=== PATIENT | female | born 1965 ===

== ENCOUNTER 2021-11-30 15:41 | Inpatient (IN) | payer MEDICARE ==
[~2021-11-30] VITALS: Ht 157.5 cm; Wt 53.5 kg
[2021-11-30 16:54] LABS: BASOPHILS PERCENT AUTO 0 % (0-2); EOSINOPHILS PERCENT AUTO 0 % (0-6); Hematocrit 42.9 % (33.0-51.0); Hemoglobin 14.8 g/dL (11.5-16.0); IMMATURE GRAN ABSOLUTE AUTO 0.03 K/mm3 (0.00-0.10); IMMATURE GRAN PERCENT AUTO 0 % (0-1); LYMPHOCYTES ABSOLUTE AUTO 0.44 K/mm3 (0.84-5.20); LYMPHOCYTES PERCENT AUTO 7 % (21-46); MONOCYTES ABSOLUTE AUTO 0.44 K/mm3 (0.16-1.47); MONOCYTES PERCENT AUTO 7 % (4-13); Mean Corpuscular HGB 32.2 pg (26.0-34.0); Mean Corpuscular HGB Conc 34.5 g/dL (31.5-36.5); Mean Corpuscular Volume 94 fL (80-100); Mean Platelet Volume 10.1 fL (9.1-12.4); NEUTROPHILS ABSOLUTE AUTO 5.77 K/mm3 (1.96-9.15); NEUTROPHILS PERCENT AUTO 86 % (41-73); Platelet Count 150 K/mm3 (150-400); RDW Coefficient Variation 13.7 % (11.7-14.2); RDW Standard Deviation 46.4 fL (35.1-46.3); Red Blood Cell Count 4.59 M/mm3 (3.80-5.20); White Blood Cell Count 6.68 K/mm3 (4.00-11.30)
[2021-11-30 17:19] LABS: CPK Creatine Kinase 487 U/L (26-193); Ethanol (Alcohol), Blood, Med <3 mg/dL
[2021-11-30 17:26] LABS: Alanine Aminotransfer (ALT/SGP 72 U/L (12-78); Albumin, Blood 3.7 g/dL (3.4-5.0); Alk Phos 119 U/L (50-136); Anion Gap 8 mmol/L (6-16); Aspartate Aminotrans (AST/SGOT 82 U/L (12-37); Bilirubin, Total 0.6 mg/dL (0.1-1.0); Blood Urea Nitrogen 10 mg/dL (8-24); Bun/Creatinine Ratio 22.3 (12.0-20.0); CO2, Blood 26 mmol/L (21-32); Calcium, Blood 9.3 mg/dL (8.5-10.1); Chloride, Blood 105 mmol/L (98-108); Creatinine, Blood 0.45 mg/dL (0.40-1.00); Globulin, Blood 3.6 g/dL (2.2-4.0); Glomerular Filtration Rate 75 (60-); Glucose, Blood 32 mg/dL (70-99); Potassium, Blood 2.7 mmol/L (3.5-5.5); Sodium, Blood 139 mmol/L (136-145); Total Protein, Blood 7.3 g/dL (6.4-8.2)
[2021-11-30 17:39] LABS: U Amphetamine Screen Not Detected; U Barbituate Screen Not Detected; U Benzodiazapine Screen Not Detected; U Buprenorphine Screen Not Detected; U Cannabinoids Screen DETECTED; U Cocaine Screen Not Detected; U Methadone Screen Not Detected; U Methamphetamine Screen Not Detected; U Opiates Screen Not Detected; U Oxycodone Screen Not Detected; U Phencyclidine Screen Not Detected; U Propoxyphene Screen Not Detected
[2021-11-30 17:43] LABS: Salicylate <1.7 mg/dL (2.8-20.0)
[2021-11-30 17:44] LABS: Creatine Kinase MB 14.9 ng/mL (0.0-3.6); Creatine Kinase MB Index 3.1 (0.0-4.0)
[2021-11-30 17:46] LABS: Acetaminophen, Random <2.0 ug/mL (10.0-30.0)
[2021-11-30 19:04] LABS: Source, Urine Fem Cath
[2021-11-30 19:08] LABS: Appearance, Urine Cloudy (Clear); Bilirubin, Urine Neg (Neg); Blood, Urine 2+ (Neg); Color, Urine Yellow (P-Yellow); Glucose Qualitative, Urine 3+ (Neg); Ketones, Urine Neg (Neg); Leukocyte Esterase, Urine 1+ (Neg); Nitrite, Urine Neg (Neg); Protein, Urine 3+ (Neg); Specific Gravity, Urine 1.015 (1.003-1.022); Urobilinogen, Urine NORM (Normal)
[2021-11-30 19:18] LABS: Bacteria Many /hpf; Squamous Epithelial Cells Rare /hpf (Few)
[2021-11-30 19:19] LABS: Amorphous Light (0-Heavy); Calcium Oxalate Crystals Few /hpf; Mucus Light (0-Heavy)
[2021-11-30] MEDS ORDERED: METF500 PO (22:04)
[2021-11-30] MEDS ORDERED: CLON1 PO (22:08)
--- NOTE | 2021-12-01 01:31 | NUR ---
Assumed care of pt at 1900. A/O to self only, needs constant reorientation. Pt says her name is Deann, or "James" for short. Last name is unclear as different answers given. Patient states "1965". Slightly febrile on admission at 99.7, but decreased to WNL shortly after. VSS. Patient appears to have bitten the inside R side of her lip and her tongue. Both without bleeding at this time, but old blood cleaned off face. Patient was on D51/2NS on admission at 100ml/hr but patients CBG kept dropping, to as low as 13. D50 amp given which brings her up but not for long and starts dropping again. Doctor contacted and changed to D10 1/2 NS at 150ml/hr. Had to give another amp of D50 despite being on the D10 1/2NS. This RN is doing Q15 CBG checks. SR-ST on tele 90-110.
[2021-12-01 04:07] LABS: BASOPHILS ABSOLUTE AUTO 0.01 K/mm3 (0.00-0.23); BASOPHILS PERCENT AUTO 0 % (0-2); EOSINOPHILS PERCENT AUTO 0 % (0-6); Hematocrit 37.6 % (33.0-51.0); Hemoglobin 12.9 g/dL (11.5-16.0); IMMATURE GRAN ABSOLUTE AUTO 0.01 K/mm3 (0.00-0.10); IMMATURE GRAN PERCENT AUTO 0 % (0-1); LYMPHOCYTES ABSOLUTE AUTO 0.81 K/mm3 (0.84-5.20); LYMPHOCYTES PERCENT AUTO 13 % (21-46); MONOCYTES ABSOLUTE AUTO 0.68 K/mm3 (0.16-1.47); MONOCYTES PERCENT AUTO 11 % (4-13); Mean Corpuscular HGB 32.1 pg (26.0-34.0); Mean Corpuscular HGB Conc 34.3 g/dL (31.5-36.5); Mean Corpuscular Volume 94 fL (80-100); Mean Platelet Volume 9.7 fL (9.1-12.4); NEUTROPHILS ABSOLUTE AUTO 4.72 K/mm3 (1.96-9.15); NEUTROPHILS PERCENT AUTO 76 % (41-73); Platelet Count 135 K/mm3 (150-400); RDW Coefficient Variation 13.8 % (11.7-14.2); Red Blood Cell Count 4.02 M/mm3 (3.80-5.20); White Blood Cell Count 6.23 K/mm3 (4.00-11.30)
[2021-12-01 04:26] LABS: Bun/Creatinine Ratio 10.5 (12.0-20.0); Calcium, Blood 7.4 mg/dL (8.5-10.1); Creatinine, Blood 0.47 mg/dL (0.40-1.00); Potassium, Blood 3.4 mmol/L (3.5-5.5)
--- NOTE | 2021-12-01 08:08 | NUR ---
BRISEYDA PLACED FOR ACCURATE I&Os PT ON CONTINUOUS D10 INFUSION AT 200ML/HR TELEPHONE ORDER PLACED BY THIS RN THAT WAS OBTAINED FROM DR EVERETT THIS AM. PT REQUIRES Q30 MINUTE BLOOD SUGARS AT THIS TIME BLOOD SUGARS WERE FLUCTUATING WILDLY T/O THE NIGHT. UPON ASSUMING PT CARE PT REQUESTING DEIRDRE, WAS PROVIDED WITH CLEAR ENSURE SHE REPORTS LACTOSE INTOLERANCE, WITH THE ADDITION OF ENSURE PT'S BLOOD SUGARS HAVE REMAINED AT 82. PT IS NOW SITTING UP IN BED EATING BREAKFAST TRAY. LS DIM T/O ON RIGHT SIDE, DIM TO CLEAR ON LEFT SIDE. DISTANT HEAR SOUNDS. PT BECOMING MORE ALERT, SHE IS ABLE TO REMEMBER DETAILS FROM HER STAY AT [facility] AND HER STAY HERE, HER RECOLLECTION IS SPOTTY.
--- NOTE | 2021-12-01 09:05 | NUR ---
ASSUMPTION OF CARE GERMAN FOWLER AND RAMA FOWLER ASSUMED CARE OF PATIENT AT 0700. BEDSIDE REPORT TAKEN FROM NANE MARIE FOWLER. PATIENT IS ALERT AND ORIENTED TO SELF AND DATE. UNSURE OF LOCATION AND SITUATION BUT DOES KNOW WHERE SHE LIVES AND THAT SHE WAS AT [facility]. PATIENT DENIES PAIN EXCEPT FOR BLADDER SPASMS DUE TO RECENT RAIN CATHETER PLACEMENT THIS AM FOR STRICT INPUT/OUTPUT MONITORING. PATIENT IS CALM AND COOPERATIVE WITH CARE BUT IS A POOR HISTORIAN FOR HEALTH HISTORY. PATIENT STATES SHE ONLY SMOKES MARIJUANA AND DOES NOT DRINK DAILY OR USE OTHER LEGAL/ILLEGAL DRUGS. CURRENT BLOOD SUGARS OVER THE PAST HOUR HAVE BEEN 156 AND 146. PATIENT IS CURRENTLY ON HER SECOND PROTEIN DRINK THIS AM. PATIENT ATE SOME OF HER EGGS ON HER BREAKFAST TRAY BUT STATED THAT IT HURT TO EAT DUE TO HER BITING HER TONGUE. IT IS SUSPECTED THAT THE PATIENT HAD A SEIZURE AT SOME POINT BEFORE COMING TO THE ED BECAUSE OF HER LOW BLOOD SUGAR AT TIME OF BEING FOUND DOWN AND THE LANDA ON HER TONGUE THAT INDICATE SHE BIT IT. PATIENT IS CURRENTLY SITTING UP IN BED DRINKING HER PROTEIN SHAKE. BED IN LOWEST POSITION AND CALL LIGHT WITHIN REACH. ALL VITALS STABLE. BED ALARM ON.
--- NOTE | 2021-12-01 09:53 | NUR ---
V/O OBTAINED FROM DR EVERETT TO TITRATE D10 DRIP TO KEEP BLOOD SUGARS ABOVE 100. D10 TITRATED TO 150ML/HR BLOOD SUGAR 161. PT ATE SMALL AMOUNT OF BREAKFAST AND WAS ABLE TO DRINK 1.5 CARTONS OF ENSURE. PT DOES REPORT ABD DISCOMFORT WITH EATING NOW WHEN DR EVERETT ROUNDED. PT REMAINS FORGETFUL BUT IS MORE ALERT, AND AWAKE. RAIN CONTINUES TO DRAIN WELL TO GRAVITY
[2021-12-01 10:15] LABS: Source, Urine Foley catheter
[2021-12-01 11:07] LABS: Appearance, Urine Clear (Clear); Bilirubin, Urine Neg (Neg); Color, Urine Yellow (P-Yellow); Ketones, Urine Neg (Neg); Nitrite, Urine Neg (Neg); Protein, Urine Neg (Neg); Urobilinogen, Urine NORM (Normal)
[2021-12-01 11:21] LABS: Blood, Urine Neg (Neg)
[2021-12-01 11:25] LABS: Glucose Qualitative, Urine 2+ (Neg); Leukocyte Esterase, Urine 1+ (Neg); Red Blood Cells, Urine 0-2 /hpf (0-2); pH, Urine 6.5 (5.0-8.0)
[2021-12-01 11:26] LABS: Bacteria Many /hpf; Squamous Epithelial Cells Rare /hpf (Few)
[2021-12-01 11:28] LABS: C-REACTIVE PROTEIN, EXT RANGE 1.77 mg/dL (0.000-0.300)
--- NOTE | 2021-12-01 16:37 | NUR ---
SHIFT SUMMARY PATIENT CONTINUES TO BE CONFUSED ABOUT THE SITUATION AND HER HEALTH HISTORY. PATIENT APPEARS TO BE ALERT AND ORIENTED TO HERSELF AND THE DATE ONLY. BP CONTINUES TO BE STABLE. BLOOD GLUCOSE HAS MAINTAINED IN THE LOW 100S ON A D-10 GTT AT 200MLS/HR. Q1HR CHECKS WITH GLUCOMETER. RAIN CATHETER PLACED DUE TO THE NEED FOR STRICT INPUT AND OUTPUT. PATIENT TOLERATING WELL AND CATHETER IS DRAINING CLEAR LIGHT YELLOW URINE TO GRAVITY; URINE SAMPLE SENT PER PROTOCOL. PATIENT COMPLAINED OF ABDOMINAL PAIN WITH NOTED FLATUS FREQUENTLY. PATIENT HAD SOFT FORMED STOOL EARLIER IN THE SHIFT. PATIENT GOT A CT SCAN OF ABDOMEN EARLIER IN THE SHIFT WHICH RULED OUT BOWEL OBSTRUCTION. PATIENT BRIEFLY COMPLAINED OF KNEE PAIN AND STATED THAT SHE HAS A HX OF ARTHRITIS BUT DOES NOT WANT TYELENOL AT THIS TIME. ALL VITALS STABLE. WILL CONTINUE TO MONITOR SHIFT CHANGE AT 1900. BED IN LOWEST POSITION AND CALL LIGHT IN REACH.
--- NOTE | 2021-12-01 23:03 | NUR ---
pt update PT STARTED SHIFT CB. CONTINUES TO DECREASE BLOOD GLUCOSE DESPITE D10 INFUSING PER EMAR. 2200 CB. CALL PLACED TO MD DRAKE TO ASK ABOUT CHECKING LABS SUCH ADRENAL AND PITUITARY HORMONE W/ AM LABS. MD DRAKE TO PUT LAB ORDERS IN.
--- NOTE | 2021-12-01 23:42 | NUR ---
PT UPDATE PT C/O OF 'STIFFNESS' ALL OVER AND NUMBNESS/TINGLING IN TOP OF FEET/TOES. DECREASED MOVEMENT WITH PUSH AND PULL FEET ASSESSMENT. CALL PLACED TO MD DRAKE. MD DRAKE W/ ORDERS FOR OT GABAPENTIN, SEE EMAR. MD DRAKE ALSO W/ ORDERS TO DRAW HORMONE LABS ONLY WHEN PT HYPOGLYCEMIC. MD DRAKE TO PUT IN NURSE NOTIFY.
[2021-12-02 05:48] LABS: BASOPHILS ABSOLUTE AUTO 0.02 K/mm3 (0.00-0.23); BASOPHILS PERCENT AUTO 1 % (0-2); EOSINOPHILS ABSOLUTE AUTO 0.05 K/mm3 (0.00-0.68); EOSINOPHILS PERCENT AUTO 1 % (0-6); Hematocrit 37.6 % (33.0-51.0); Hemoglobin 12.8 g/dL (11.5-16.0); IMMATURE GRAN ABSOLUTE AUTO 0.02 K/mm3 (0.00-0.10); IMMATURE GRAN PERCENT AUTO 1 % (0-1); LYMPHOCYTES ABSOLUTE AUTO 1.38 K/mm3 (0.84-5.20); LYMPHOCYTES PERCENT AUTO 32 % (21-46); MONOCYTES ABSOLUTE AUTO 0.61 K/mm3 (0.16-1.47); MONOCYTES PERCENT AUTO 14 % (4-13); Mean Corpuscular HGB 32.7 pg (26.0-34.0); Mean Corpuscular Volume 96 fL (80-100); Mean Platelet Volume 9.7 fL (9.1-12.4); NEUTROPHILS ABSOLUTE AUTO 2.18 K/mm3 (1.96-9.15); NEUTROPHILS PERCENT AUTO 51 % (41-73); Platelet Count 119 K/mm3 (150-400); RDW Coefficient Variation 14.3 % (11.7-14.2); RDW Standard Deviation 50.5 fL (35.1-46.3); Red Blood Cell Count 3.91 M/mm3 (3.80-5.20); White Blood Cell Count 4.26 K/mm3 (4.00-11.30)
[2021-12-02 06:02] LABS: Albumin, Blood 2.6 g/dL (3.4-5.0); Albumin/Globulin Ratio 0.8 (0.8-1.8); Bilirubin, Total 0.4 mg/dL (0.1-1.0); Bun/Creatinine Ratio 7.5 (12.0-20.0); Creatinine, Blood 0.53 mg/dL (0.40-1.00); Globulin, Blood 3.1 g/dL (2.2-4.0); Potassium, Blood 3.3 mmol/L (3.5-5.5); Thyroid Stimulating Hormone 2.82 uIU/mL (0.360-4.800); Total Protein, Blood 5.7 g/dL (6.4-8.2)
--- NOTE | 2021-12-02 06:30 | NUR ---
shift summary pt alert, oriented to self. poor historian. vss. pt cbg q1h, stayed >90 w/ d10 infusing at 200 mls/hr per emar. prince catheter draining clear yellow urine to gravity. no bm this shift but did pass alot of gas. pt states her abd bloat feels much better after passing gas. pt c/o of numbness/tingling in feet during shift, improved t/o shift. slept 2nd half of shift. asking when she can go home. call light in reach.
--- NOTE | 2021-12-02 18:27 | NUR ---
SHIFT SUMMARY PT ORIENTED TO SELF AND PLACE, ABLE TO RECALL THE SITUATION THAT BROUGHT HER INTO THE HOSPITAL ALTHOUGH DOES HAVE INTERMITTENT EPISODES OF CONFUSION. VSS; SR W/HR IN 80'S-90'S, SBP 150'S -160'S, OP2 >94% ON RA. PROVIDER NOTIFIED OF ELEVATED BP, NO NEW ORDERS; REQUESTS THAT IF SBP CONTINUES TO RISE NOTIFY PROVIDER. PROVIDER ALSO NOTIFIED OF PT REPORTS OF NUMBNESS IN TOES AND HANDS, ALONG WITH INCREASED PAIN. PT STATES "HER FEET DO NOT FEEL REAL". PROVIDER DID NOT HAVE ANY NEW ORDERS FOR THIS. PT WAS UP TO DANGLE AT BEDSIDE, PT STRUGGLED TO SIT UP BUT WAS ABLE TO REMAIN UPRIGHT FOR ABOUT 10 MINUTES. PT DID NOT HAVE A BM THROUGHOUT SHIFT BUT DID PASS FLATUS. PT DECLINED BEDBATH, ORAL CARE OR BRUSHING HAIR, STATES "MAYBE TOMORROW" SHE IS NOT FEELING WELL TODAY. PT COMPLAINS OF PAIN IN NECK AND SHOULDERS, MEDICATED PER EMAR. D10 DISCONTINUED, NEW ORDERS FOR D5 AT 125 ML/HR WITH CONTINUED CBG Q1. IF PT CBG REMAIN STABLE AND SUSTAIN, POSSIBLE TITRATION AND CBG Q4. RN TO CALL PROVIDER TOMORROW
--- NOTE | 2021-12-03 06:28 | NUR ---
shift summary Pt alert to self, place. Intermittent confusion. vss. some htn, MD Pena notified, continue to monitor d/t pt shaking possibly interfering w/ accuracy. prince catheter draining clear yellow urine. no bm this shift but a lot of gas. c/o of back pain, medicated per emar x1. repositioned frequently. c/o of muscle stiffness all over, hands and feet sensitive to touch. PG infusing d5 at 200 mls/hr, see previous note. q1h cbg done per orders. pt slept off and on during noc. Linen change done this shift. call light in reach.
[2021-12-03 08:07] LABS: C-PEPTIDE, SERUM 1.1 ng/mL (1.1-4.4)
[2021-12-03 08:59] LABS: BASOPHILS ABSOLUTE AUTO 0.03 K/mm3 (0.00-0.23); BASOPHILS PERCENT AUTO 1 % (0-2); EOSINOPHILS ABSOLUTE AUTO 0.08 K/mm3 (0.00-0.68); EOSINOPHILS PERCENT AUTO 2 % (0-6); Hematocrit 41.1 % (33.0-51.0); Hemoglobin 13.8 g/dL (11.5-16.0); IMMATURE GRAN ABSOLUTE AUTO 0.02 K/mm3 (0.00-0.10); IMMATURE GRAN PERCENT AUTO 0 % (0-1); LYMPHOCYTES ABSOLUTE AUTO 1.29 K/mm3 (0.84-5.20); LYMPHOCYTES PERCENT AUTO 24 % (21-46); MONOCYTES ABSOLUTE AUTO 0.65 K/mm3 (0.16-1.47); MONOCYTES PERCENT AUTO 12 % (4-13); Mean Corpuscular HGB 31.9 pg (26.0-34.0); Mean Corpuscular HGB Conc 33.6 g/dL (31.5-36.5); Mean Corpuscular Volume 95 fL (80-100); Mean Platelet Volume 9.4 fL (9.1-12.4); NEUTROPHILS PERCENT AUTO 61 % (41-73); Platelet Count 148 K/mm3 (150-400); RDW Coefficient Variation 13.6 % (11.7-14.2); RDW Standard Deviation 47.6 fL (35.1-46.3); Red Blood Cell Count 4.33 M/mm3 (3.80-5.20); White Blood Cell Count 5.37 K/mm3 (4.00-11.30)
[2021-12-03 09:18] LABS: Albumin, Blood 2.9 g/dL (3.4-5.0); Albumin/Globulin Ratio 0.8 (0.8-1.8); Bilirubin, Total 0.5 mg/dL (0.1-1.0); Bun/Creatinine Ratio 9.8 (12.0-20.0); C-REACTIVE PROTEIN, EXT RANGE 1.06 mg/dL (0.000-0.300); Calcium, Blood 8.2 mg/dL (8.5-10.1); Creatinine, Blood 0.51 mg/dL (0.40-1.00); Globulin, Blood 3.6 g/dL (2.2-4.0); Potassium, Blood 3.7 mmol/L (3.5-5.5); Total Protein, Blood 6.5 g/dL (6.4-8.2)
--- NOTE | 2021-12-03 10:02 | NUR ---
CARE ASSUMED OF PT AT 0700. PT SOFT SPOKEN BUT AWAKE, ALERT, AND ORIENTED. PT C/O 9/10 PAIN TO ALL OF HER JOINTS. C/O 9/10 NECK AND BACK PAIN. DENIES HEADACHE. DENIES NAUSEA. BS WNL ON D5 AT 200CC/HR. PT HYPERTENSIVE. PT SHAKING FROM PAIN. DR ARAUJO CALLED AND UPDATED. LABS AND CT SCAN ORDERED. FENTANYL 25MCG GIVEN WITH GOOD EFFECT. PT ALSO STATES MOUTH HURTS. NO ORAL SORES SEEN BUT BOTTOM LIP DOES APPEAR TO BE SWOLLEN. CT OF HEAD AND SPINE COMPLETED.
--- NOTE | 2021-12-03 12:16 | NUR ---
DR EVERETT IN TO SEE PT, FULL UPDATE GIVEN. FENTANYL CHANGED TO Q2HRS PRN PAIN. PT GIVEN TYLENOL FOR JOINT PAIN. ADDITIONAL LABS ORDERED. CBG Q2 HRS NOW. D5W DECREASED TO 150CC/HR.
--- NOTE | 2021-12-03 16:47 | NUR ---
PT MUCH MORE AWAKE. CALM. PAIN UNDER BETTER CONTROL. DURING BED BATH TWO SCABS ON EACH SIDE OF COCCYX NOTED. PICTURES TAKEN, MEPILEX PLACED. BP IMPROVING. BLOOD SUGAR IMPROVING WELL.
--- NOTE | 2021-12-03 19:33 | NUR ---
NURSING PCU NOC SHIFT: Assumed care of pt at approx 1900. A/O, general weakness in all ext's, reduced fine motor skills of hands d/t joint inflammation. C/O 8/10 pain in joints/ext's. Skin has scattered bruising t/o, reported scabbed over breakdown on coccyx w/mepilex in place, increased redness/heat to R foot. Tele in place, NSR w/HR 80's, no c/o CP/pressure, HTN w/BP 147/103, no general edema noted. L/S cta t/o, O2 sat 100% on RA, denies dyspnea, no noted cough. Abd firm, mildly distendend, BT hyperactive, experiencing flatus. Temp FC w/stat lock in place and draining clear/yellow urine w/o difficulty. 24g PIV in L hand, s/l. PG to RUE w/D5 infusing at 150cc/hr as per d/o. No s/s of acute distress at this time. Will provide pt with fentanyl as ordered for pain management. Pt able to participate in ADL's though requires some assistance with repositioning. Denies any additional needs other than pain control, cont to monitor for changes.
--- NOTE | 2021-12-03 19:33 | NUR ---
NURSING PCU NOC SHIFT: Assumed care of pt at approx 1900. A/O, general weakness in all ext's, reduced fine motor skills of hands d/t joint inflammation. C/O 8/10 pain in joints/ext's. Skin has scattered bruising t/o, reported scabbed over breakdown on coccyx w/mepilex in place, increased redness/heat to R foot. Tele in place, NSR w/HR 80's, no c/o CP/pressure, HTN w/BP 147/103, no general edema noted. L/S cta t/o, O2 sat 100% on RA, denies dyspnea, no noted cough. Abd firm, mildly distendend, BT hyperactive, experiencing flatus. Temp FC w/stat lock in place and draining clear/yellow urine w/o difficulty. 22g PIV in L hand, s/l. PG to RUE w/D5 infusing at 150cc/hr as per d/o. No s/s of acute distress at this time. Will provide pt with fentanyl as ordered for pain management. Pt able to participate in ADL's though requires some assistance with repositioning. Denies any additional needs other than pain control, cont to monitor for changes.
--- NOTE | 2021-12-04 05:02 | NUR ---
NURSING PCU NOC SHIFT SUMMARY: No significant changes noted t/o the shift. Pt has rested fairly comfortably after administration of 25mcg fentanyl x1 and bedtime dose of klonopin. Able to make needs known and use call light. Tolerated repositioning for comfort though ext's/joints remain painful with movement. Decreased D5 to 100mls/hr, CBG remains stable. Pt tolerating PO intake though requires some assitance d/t decrease fine motor skills r/t joint swelling/pain. Pt denies any current needs at this time. Call light remains in reach. Cont to monitor until rpt is given to day RN.
[2021-12-04 05:08] LABS: HEP B CORE AB, TOT Negative (Negative)
--- NOTE | 2021-12-04 07:14 | NUR ---
ASSUMPTION OF CARE: PATIENT SLEEPING WITH NO SIGNS OF DISTRESS, D5 INFUSING AT 100, LAST CBG PREFORMED, WILL JOE AT 0800, NIGHT RN ENDORSED PATIENT TO BE MORE ALERT AND ORIENTED WITH NO RECOLLECTION OF THE EVENT WHERE SHE WAS FOUND DOWN, NIGHT RN ENDORSED DRAMATIC IMPROVMENT TO JOINT INFLAMATION/SWELLING, PATIENT SAID TO BE HAVE JOINT ACHES AND WAS CONFIRMED WITH SLIGHT PRESSURE TO PEDAL PULSES, SEIZURE PRECAUTIONS IN PLACE, NO ACUTE CONCERNS FROM NIGHT RN WILL CONTINUE TO MONITOR AT THIS TIME.
[2021-12-04 17:13] LABS: Glucose, CSF 81 mg/dL (40-70)
[2021-12-04 17:33] LABS: WBC Count, CSF 0 /mm3 (0-5)
[2021-12-04 17:34] LABS: Appearance, CSF Clear (Clear); Color, CSF No Color (No Color)
[2021-12-04 17:36] LABS: RBC Count, CSF 0 /mm3 (0-0)
[2021-12-04 18:12] LABS: Escherichia Coli K1 Not Detected (NOT DETECT); Haemophilus Influenza Not Detected (NOT DETECT); Listeria Monocytogenes Not Detected (NOT DETECT); Neisseria Meningitidis Not Detected (NOT DETECT)
[2021-12-04 18:13] LABS: Cryptococcus Neoformans/Gattii Not Detected (NOT DETECT); Enterovirus Not Detected (NOT DETECT); Herpes Simplex Virus 1 Not Detected (NOT DETECT); Herpes Simplex Virus 2 Not Detected (NOT DETECT); Human Herpesvirus 6 Not Detected (NOT DETECT); Human Parechovirus Not Detected (NOT DETECT); Streptococcus Agalactiae Not Detected (NOT DETECT); Streptococcus Pneumoniae Not Detected (NOT DETECT); Varicella Zoster Virus Not Detected (NOT DETECT)
--- NOTE | 2021-12-04 18:17 | NUR ---
END OF SHIFT: PATIENT HAS HAD AN MRI, AND LUMBAR PUNCTURE, AND STILL INFUSING 100 OF D5 NEW BAG AT BEDSIDE. PATIETN HAS BEEN A &O X3-4, BUT IS STILL CONFUSED, Q2 BLOOD SUGAR AND REPOSITIONS. SPACED OUT DUE TO CARE, AND STARTING AND STOPPING OF D5. PATIENT HAS BEEN CLEAR BILATERALLY ON BREATHSOUNDS AT BEGGINING OF SHIFT. DENIES CHEST PAIN PRESSURE, OR SOB.PATIENT HAS BEEN PLEASANT AND VERY COOPERATIVE WITH CARE MEDICATED WITH EMAR PAIN MEDS, ONLY 1 BOUT OF NAUSEA MEDICATED PER EMAR. NO SECOND DOSE NEEDED. PATIENT STILL COMPLAINING OF JOINT PAIN, AND NUMBNESS OF THE FEET, WHICH PROVIDER AWARE. WILL CONTINUE TO MONITOR. LUMBAR PUNCTURE WAS BY DR. ROBERSON AND TOLEARTED GREATLY WITH 1 MG IV ATIVAN FOR ANX. NO CONCERNS ABOUT STERILE TECHNIQUE, AND WAS EXECUTED EXCELLENTLY. PATIENT IS ABLE TO COMPREHEND COMPLEX DECISIIONS STILL AT THIS TIME, INCREASING FATIGUE AND GENERALIZED WEAKNESS. POOR APPETITE, WILL CONTINUE TO MONITOR UNTIL SHIFT CHANGE.
--- NOTE | 2021-12-04 19:45 | NUR ---
ASSUMED CARE PT SITTING IN BED EATING DINNER. REPORTS LITTLE APPETITE. D5W INFUSING AT 100ML/HR. Q2 CBG CHECKS. LUNG SOUNDS CLEAR WITH DIM BASES. COUGH WITH THIN CLEAR SPUTUM. SR, VSS, HYPERTENSION NOTED. PT C/O PAIN 7/10 IN JOINTS AND NUMBNESS/TINGLING IN BLE. PT ALSO C/O NAUSEA. MEDICATED PER EMAR. BED ALARM IN PLACE.
--- NOTE | 2021-12-04 21:56 | NUR ---
CALL TO MD CALL PLACED TO DR MANCILLA REGARDING NUEROPATHY PAIN IN BLE. ORDER RECEIVED.
[2021-12-05 04:01] LABS: BASOPHILS ABSOLUTE AUTO 0.01 K/mm3 (0.00-0.23); BASOPHILS PERCENT AUTO 0 % (0-2); EOSINOPHILS ABSOLUTE AUTO 0.07 K/mm3 (0.00-0.68); EOSINOPHILS PERCENT AUTO 2 % (0-6); Hemoglobin 12.8 g/dL (11.5-16.0); IMMATURE GRAN ABSOLUTE AUTO 0.01 K/mm3 (0.00-0.10); IMMATURE GRAN PERCENT AUTO 0 % (0-1); LYMPHOCYTES ABSOLUTE AUTO 1.06 K/mm3 (0.84-5.20); LYMPHOCYTES PERCENT AUTO 28 % (21-46); MONOCYTES ABSOLUTE AUTO 0.66 K/mm3 (0.16-1.47); MONOCYTES PERCENT AUTO 18 % (4-13); Mean Corpuscular HGB 32.3 pg (26.0-34.0); Mean Corpuscular HGB Conc 33.7 g/dL (31.5-36.5); Mean Corpuscular Volume 96 fL (80-100); Mean Platelet Volume 9.5 fL (9.1-12.4); NEUTROPHILS ABSOLUTE AUTO 1.95 K/mm3 (1.96-9.15); NEUTROPHILS PERCENT AUTO 52 % (41-73); Platelet Count 152 K/mm3 (150-400); RDW Coefficient Variation 13.4 % (11.7-14.2); RDW Standard Deviation 47.8 fL (35.1-46.3); Red Blood Cell Count 3.96 M/mm3 (3.80-5.20); White Blood Cell Count 3.76 K/mm3 (4.00-11.30)
[2021-12-05 04:20] LABS: Albumin, Blood 2.8 g/dL (3.4-5.0); Albumin/Globulin Ratio 0.8 (0.8-1.8); Bilirubin, Total 0.5 mg/dL (0.1-1.0); Bun/Creatinine Ratio 14.8 (12.0-20.0); Calcium, Blood 8.3 mg/dL (8.5-10.1); Creatinine, Blood 0.68 mg/dL (0.40-1.00); Globulin, Blood 3.4 g/dL (2.2-4.0); Potassium, Blood 3.9 mmol/L (3.5-5.5); Total Protein, Blood 6.2 g/dL (6.4-8.2)
--- NOTE | 2021-12-05 06:21 | NUR ---
SHIFT SUMMARY NO ACUTE EVENTS OVERNIGHT. Q2 CBG 132-157. D5W INFUSING AT 100ML/HR. SR, VSS, HYPERTENSION NOTED. PT UP TO BSC W/ 2 ASSIST. MEDICATED X1 WITH FENTANYL, AND X1 WITH GABAPENTIN WITH GOOD RESULTS. WILL REPORT TO ONCOMING NURSE.
--- NOTE | 2021-12-05 08:33 | NUR ---
NURSING PCU DAYSHIFT: Assumed care of pt at approx 0700. A/O, pleasant, cooperative w/care. Speech is soft though responses appropriate. C/O 7-8/10 joint pain, treating w/positioning and meds as ordered. Able to reposition independently in bed though assistance is required w/ambulation. General weakness noted, decreased fine motor skills in hands r/t joint pain. Skin is fairly intact w/scattered bruising, healing abrasion to buttocks. Tele in place, NSR, no c/o CP/pressure, hypertensive this a.m., no significant edema noted. L/S fairly cta t/o w/dim bases, denies dyspnea, no noted cough, O2 sat upper 90's on RA. Abd SNT, BT hyperactive, c/o gas, voiding w/o difficulty. PG in RUE w/D5 infusing at 100cc/hr, 24g PIV to LH s/l. Pt OOB to BSC to void then recliner for breakfast. Tolerating fairly well though c/o pain. Will discuss w/hospitalist the possibility of switching from IV pain medication to PO for longer pain management. Linen change completed. No s/s of acute distress at this time. Call light in reach and pt is able to use w/o difficulty. Awaiting rounding from PMD, cont to monitor for any changes.
[2021-12-05 13:10] LABS: ANA DIRECT Negative (Negative); ANTI-DNA (DS) AB QN <1 IU/mL (0-9); RNP ANTIBODIES <0.2 AI (0.0-0.9); SJOGREN'S ANTI-SS-A <0.2 AI (0.0-0.9); SJOGREN'S ANTI-SS-B <0.2 AI (0.0-0.9); SMITH ANTIBODIES <0.2 AI (0.0-0.9)
--- NOTE | 2021-12-05 16:55 | NUR ---
NURSING PCU DAYSHIFT SUMMARY: No significant changes noted t/o the shift. Pt continues to c/o joint/ext discomfort, changed pain medication to PO for longer coverage, pt tolerating well. Continues to c/o excess gas, simethicone administered. OOB to BSC to void w/one staff assist, remains weak and painful with ambulation. Spent much of the a.m. in a recliner, xfer BTB after bath completed. D5 gtt discontinued at approx 1100, CBGs remain stable though pt needs encouragement with PO intake. Prefers nutritional shakes over solid food at this time. No s/s of acute distress. Call light in reach, pt able to use w/o difficulty. Cardiac and respiratory systems unchanged. Pt changed to medical status w/o tele, awaiting bed assignment. Cont to monitor until rpt is given to NOC RN.
--- NOTE | 2021-12-06 05:51 | NUR ---
PT IS ALERT AND ORIENTED COMMUNICATING APPROPRIATELY W STAFF THIS SHIFT. PT HAS REPORTED SEVERE PAIN IN HER JOINTS SPECIFICALLY IN HER HANDS AND FEET. THE PT HAS REPORTED HER PAIN "PINS AND NEEDLES" AT TIMES, PAIN APPEARING TO BE WELL CONTROLLED W ORAL PRN PAIN MEDICATION. BP WNL AND STABLE. O2 SATS >92% ON RM AIR. CBG WNL THIS SHIFT. WILL REPORT TO ONCOMING RN.
--- NOTE | 2021-12-06 17:50 | NUR ---
SHIFT SUMMARY PT A&Ox3, UNSURE OF EVENTS LEADING TO HOSPITALIZATION. SpO2> 92% RA, BP STABLE, PT NOT ON TELE. PT ABLE TO TRANSFER TO [facility] WITH SBA. THROUGHOUT SHIFT PT REPORTED PAIN IN ALL JOINTS RANGING WITH A SCORE RANGING FROM 5-9, MEDICATED PER EMAR AND PROVIDED REPOSITIONING. PT REPORTED PAINFUL GAS AND STATED THAT SHE HAD NOT HAD A BM SINCE 12/02, DISCUSSED WITH DR. EVERETT, BOWEL CARE ORDERS GIVEN. WILL CONTINUE TO MONITOR AND PROVIDE CARE UNTIL REPORT TO NOC.
[2021-12-07 04:34] LABS: Hematocrit 38.9 % (33.0-51.0); Hemoglobin 13.3 g/dL (11.5-16.0); Mean Corpuscular HGB Conc 34.2 g/dL (31.5-36.5); Mean Corpuscular Volume 94 fL (80-100); Mean Platelet Volume 9.3 fL (9.1-12.4); Platelet Count 192 K/mm3 (150-400); RDW Coefficient Variation 12.8 % (11.7-14.2); Red Blood Cell Count 4.15 M/mm3 (3.80-5.20); White Blood Cell Count 3.78 K/mm3 (4.00-11.30)
[2021-12-07 04:56] LABS: Albumin, Blood 3.1 g/dL (3.4-5.0); Albumin/Globulin Ratio 0.8 (0.8-1.8); Bilirubin, Total 0.7 mg/dL (0.1-1.0); Bun/Creatinine Ratio 48.6 (12.0-20.0); Calcium, Blood 8.8 mg/dL (8.5-10.1); Creatinine, Blood 0.47 mg/dL (0.40-1.00); Globulin, Blood 4.1 g/dL (2.2-4.0); Potassium, Blood 4.2 mmol/L (3.5-5.5); Total Protein, Blood 7.2 g/dL (6.4-8.2)
--- NOTE | 2021-12-07 05:36 | NUR ---
SECRETARY OF POLICE SUMMARY PT IS ALERT AND ORIENTED THIS SHIFT APPEARING MUCH LESS DROWSY THEN PREVIOUSNIGHT SHIFT. BS STABLE. O2 SATS >92% ON RM AIR. BP WNL AND STABLE. PT'S PAIN MUCH BETTER THIS SHIFT ONLY REQUIRING PAIN MEDICATION ONCE THIS SHIFT. WILL REPORT TO ONCOMING RN.
--- NOTE | 2021-12-07 17:12 | NUR ---
SHIFT SUMMARY PT A&Ox4, THOUGH IS STILL UNSURE OF EVENTS LEADING TO THIS HOSPITALIZATION. SpO2> 92% RA, BP STABLE, PT NOT ON TELE. WHILE DR. DIAZ WAS IN PT's ROOM, WE DISCUSSED HER JOINT/NERVE PAIN AND HER LACK OF BM SINCE 12/01, ORDERS FOR GABAPENTIN AND ADDITIONAL BOWEL CARE WERE GIVEN. PT STATES THAT THE GABAPENTIN HELPED WITH THE JOINT/NERVE PAIN. PT REFUSED THE SUPPOSITORY BUT TOOK THE MIRALAX, PT STILL WITH NO BM THIS SHIFT. PT UP TO BSC WITH A SBA. WILL CONTINUE TO MONITOR AND PROVIDE CARE UNTIL REPORT TO NOC.
--- NOTE | 2021-12-08 04:37 | NUR ---
SHIFT SUMMARY PATIENT ALERT AND ORIENTED X4, STILL SLOW TO RESPOND AND ANXIOUS AT TIMES, SLEPT MOST THE NIGHT, CALLED APPROPRIETLY TO USE THE BATHROOM, REPOSITIONED SELF IN BED. 02 SATS >95% ON RA. BP STABLE. NO ACUTE CHANGES, CALL LIGHT IN REACH.
[2021-12-08 04:39] LABS: Albumin, Blood 3.3 g/dL (3.4-5.0); Anion Gap 7 mmol/L (6-16); Blood Urea Nitrogen 25 mg/dL (8-24); Bun/Creatinine Ratio 37.6 (12.0-20.0); CO2, Blood 26 mmol/L (21-32); Calcium, Blood 9.1 mg/dL (8.5-10.1); Chloride, Blood 106 mmol/L (98-108); Creatinine, Blood 0.67 mg/dL (0.40-1.00); Glomerular Filtration Rate 103 (60-); Glucose, Blood 109 mg/dL (70-99); Phosphorus, Blood 3.6 mg/dL (2.5-4.9); Sodium, Blood 139 mmol/L (136-145)
--- NOTE | 2021-12-08 08:31 | NUR ---
Assisted from bedside commode to dangle on side of bed, finishing her breakfast. She appears painful, hesitant, and states she isn't that hungry this morning.
--- NOTE | 2021-12-08 17:27 | NUR ---
SHIFT SUMMARY PT A&Ox4, IS FORGETFUL AT TIMES BUT EASILY REORIENTED. SpO2> 92% RA, BP STABLE, PT NOT ON TELE. PT STATES HER PAIN WAS UNDER BETTER CONTROL TODAY. PT WAS ABLE TO HAVE A BM THIS SHIFT. PT AMBULATED IN ROOM WITH OT AND PHYSICAL THERAPY. NO OTHER EVENTS. WILL CONTINUE TO MONITOR AND PROVIDE CARE UNTIL REPORT WITH NOC
--- NOTE | 2021-12-09 05:50 | NUR ---
UNIT DIRECTOR SUMMARY PT IS ALERT AND ORIENTED COMMUNICATING APPROPRIATELY W STAFF THIS SHIFT. PT HAD C/O SEVERE "PINS AND NEEDLES" PAIN IN BILATERAL FEET THIS SHIFT, MEDICATED PER EMAR W MINIMAL RELIEF. O2 SATS >92% ON RM AIR. BP WNL AND STABLE. WILL REPORT TO ONCOMING RN.
--- NOTE | 2021-12-09 08:00 | NUR ---
PT PLEASANT COOP A/O X3, VERY QUIET. CONCRETE, SOME ANX. VERY FOCUSED ON FOOT PAIN & N/T. DR DID INCREASE NUERONTIN THIS AM. H/R REG, NO MURMUR NOTED. NO TELE. LUNGS CLEAR, RESP EASY, UNLABORED. RELAXED. BT X4 LAST BM NOT KNOWN BY PT. VOIDS 1 ASST TO BSC. NO EDEMA NOTED. BED IN LOW POSITIOIN, CALL LITE IN REACH CALLS APPROP
--- NOTE | 2021-12-09 12:33 | NUR ---
PT REQUEST MED FOR ANXIETY. CALLED DR DIAZ, MED INCREASED FOR NEURONTIN. KLONAZAPAM IS FOR BEDTIME USE. NO NEW ORDERS GIVEN
--- NOTE | 2021-12-09 17:19 | NUR ---
PT PLEASANT TODAY. HAS C/O RT SHOULDER JOINT PAIN AND FOOT PAIN. SOME PAIN AND SOME NERVE PAIN. DID MEDICATE WITH LARGER DOSE NEURONTIN THIS AM PER EMAR. DID MEDICATE FOR PAIN IN ADDITION. GAVE SIMETHICONE THIS AFT FOR GAS BUILDUP. EDUCATED TO DO BICYCLE MOVEMENT WITH LEGS WHILE IN BED TO ASSIST GAS RELEIF. PT STATES OVERALL PAIN IS A NEW SITUATION FOR HER. STATES UNKNOWN WHY. STATES FEELS MAY EVEN BE IN JOINTS. NO OTHER CONCERNS NOTED, BED IN LOW POSITION, CALL LITE IN REACH, CALLS APPROP
[2021-12-10 05:04] LABS: Hematocrit 40.4 % (33.0-51.0); Hemoglobin 13.5 g/dL (11.5-16.0); Mean Corpuscular HGB 31.8 pg (26.0-34.0); Mean Corpuscular HGB Conc 33.4 g/dL (31.5-36.5); Mean Corpuscular Volume 95 fL (80-100); Mean Platelet Volume 9.4 fL (9.1-12.4); Platelet Count 209 K/mm3 (150-400); RDW Coefficient Variation 12.7 % (11.7-14.2); RDW Standard Deviation 44.3 fL (35.1-46.3); Red Blood Cell Count 4.24 M/mm3 (3.80-5.20); White Blood Cell Count 4.01 K/mm3 (4.00-11.30)
[2021-12-10 05:40] LABS: Albumin, Blood 3.2 g/dL (3.4-5.0); Anion Gap 7 mmol/L (6-16); Blood Urea Nitrogen 17 mg/dL (8-24); Bun/Creatinine Ratio 26.9 (12.0-20.0); CO2, Blood 25 mmol/L (21-32); Calcium, Blood 9.3 mg/dL (8.5-10.1); Chloride, Blood 106 mmol/L (98-108); Creatinine, Blood 0.63 mg/dL (0.40-1.00); Glomerular Filtration Rate 104 (60-); Glucose, Blood 105 mg/dL (70-99); Phosphorus, Blood 4.2 mg/dL (2.5-4.9); Sodium, Blood 138 mmol/L (136-145)
--- NOTE | 2021-12-10 05:49 | NUR ---
LIFE CLAIMS EXAMINER SUMMARY THE PT IS ALERT AND ORIENTED COMMUNICATING APPRORPIATELY W STAFF THIS SHIFT. THE PT HAS C/O OF MUCH MORE SIGNIFICANT PAIN THIS SHIFT COMPRED TO THE PREVIOUS NIGHT W THE MAIN SOURCE OFR HER PAIN BEING IN HER R SHOULDER AND "GENERALIZED JOINT PAIN". PT'S O2 SATS >92% ON RM AIR. BP WNL AND STABLE. PT ABLE TO SLEEP MOST OF THE NIGHT AWAKENING TO REQUEST PAIN MEDICATION. WILL REPORT TO ONCOMING RN.
--- NOTE | 2021-12-10 17:14 | NUR ---
SHIFT SUMMARY PATIENT IS ALERT AND ORIENTED. PATIENT HAS HAD NO ACUTE EVENTS THIS SHIFT. VITAL SIGNS REVIEWED. PATIENT WAS A PCU TRANSFER THIS MORNING. PATIENT IS A 1 PERSON ASSIST. PATIENT HAS HAD SOFT BMS SINCE TRANSFER. PATIENT HAS NOT COMPLAINED OF SOB, NAUSEA, VOMITTING. PATIENT HAS HAD PAIN AND MEDICATED PER EMAR. BED IN LOCKED AND LOWEST POSITION. CALL LIGHT IN PLACE. WILL MONITOR UNTIL SHIFT CHANGE.
--- NOTE | 2021-12-11 07:14 | NUR ---
56 YEAR OLD FEMALE WITH CIRRHOSIS & ams WHO WAS FOUND DOWN AT 7 FEATHERS WITH BLOOD GLUCOSE OF 13 PER PT REPORT. PT REPORTS ONGOING ETOH USE DESPITE CIRRHOSIS REFUSED BOWEL CARE HAD 4 BMS THIS SHIFT.
--- NOTE | 2021-12-11 14:08 | NUR ---
SHIFT SUMMARY PT RESTING QUIETLY AT START OF SHIFT. WOKE EASILY FOR CARE WEAK AND DECONDITIONED WITH FLAT AFFECT. C/O GAS AFTER BREAKFAST, BUT ONLY EATING SM AMTS. REPORTED 4 BM'S SINCE YESTERDAY. BOWEL CARE HELD. PT IS CONTINENT OF BOWEL AND BLADDER, GETTING UP TO BSC WITH SBA NEEDED. PT UP TO SHOWER THIS AFTERNOON WITH ASSIST FROM [employer]. LINENS AND GOWN CHANGED. PER ROTARY DRIER, PT WAITING TO GO TO SNF WHEN BED AVAILABLE. DENIES FURTHER NEEDS AT THIS TIME. CALL LT IN REACH.
--- NOTE | 2021-12-12 17:45 | NUR ---
SHIFT SUMMARY PT A&OX 4 AND IN PLEASENT MOOD T/O SHIFT. TOLERATING PO INTAKE @ THIS TIME. NO FURTHER C/O LOOSE BM. CALL LIGHT W/IN REACH. PAIN MEDICATED PER EMAR. AWAITING PLACEMENT @ THIS TIME. GLUCOSE CHECKS W/IN NORMAL RANGE.
--- NOTE | 2021-12-13 00:15 | NUR ---
PATIENT COMPLAINED OF BURNING TO HER FEET EARLY IN SHIFT. MEDICATED WITH OXYCODONE AND TYLENOL. CURRENTLY SHE IS RESTING COMFORTABLY EYES CLOSED BREATHING EVEN AND UNLABORED. PATIENT IS AO X 3. PERSON PLACE AND EVENT BUT NOT TIME. VITAL SIGNS ARE WITHIN NORMAL LIMITS. BLOOD SUGAR IS 91 AND PATIENT ENCOURAGED TO EAT A SNACK. PATIENT IS VERY TEARY AND IS WONDERING WHY HER BLOOD SUGARS ARE SO UP AND DOWN. PATIENT IS ENCOURAGED TO SPEAK WITH MD IN THE AM. NOT TO BOARD IN ROOM TO ASSIST PAITENT IN REMEMBERING.
--- NOTE | 2021-12-13 17:41 | NUR ---
SHIFT SUMMARY PT IS A&OX4 AND COOPERATIVE OF CARE. PT HAS C/O PAIN IN RIGHT SHOULDER AND MEDICATED PER EMAR. PT WORKED WITH PHYSICAL AND OCCUPATIONAL THERAPY TODAY. PT HAS BEEN UP TO CHAIR SEVERAL TIMES TODAY AND IS ABLE TO AMBULATE TO BATHROOM WITH FWW AND 1 ASSIST. BED IN LOWEST POSITION AND CALL LIGHT IN REACH.
--- NOTE | 2021-12-14 06:14 | NUR ---
SHIFT SUMMARY SHE IS STILL COMPLAINING OF SHOULDER PAIN, MEDICATED PER EMAR. PT IS A/OX4, BUT FLAT AND WITHDRAWN. MAKES NEEDS KNOWN. BLOOD GLUCOSE STABLE, VITALS STABLE. PT SLEPT MOST OF THE NIGHT APPEARING COMFORTABLE. NO ACUTE CHANGES OVERNIGHT, ASSESSMENT UNCHANGED.
[2021-12-14 10:43] LABS: Influenza A, PCR NEGATIVE (NEGATIVE); Influenza B, PCR NEGATIVE (NEGATIVE); Resp Syncytial Virus, PCR NEGATIVE (NEGATIVE); SARS-Cov-2 (COVID-19) PCR, MMC NEGATIVE (NEGATIVE)
[2021-12-14] MEDS ORDERED: ACET325 PO (12:35)
[2021-12-14] MEDS ORDERED: DEX4 GLUCOSE33 G2 PO (12:35)
[2021-12-14] MEDS ORDERED: GABA300 PO (12:36)
[2021-12-14] MEDS ORDERED: MIRALAX17 GM PO (12:36)
[2021-12-14] MEDS ORDERED: OXYC5 PO (12:36)
[2021-12-14] MEDS ORDERED: DOCU100 PO (12:36)
[2021-12-14] MEDS ORDERED: SIME80CH PO (12:37)
[2021-12-14] MEDS ORDERED: SENN187 PO (12:37)
--- NOTE | 2021-12-14 14:27 | NUR ---
LATE ENTRY/DC TO SNF 1200: PT TO SNF VIA MEDICAL TRANSPORT WITH ALL PERSONAL BELONGINGS. POWER GLIDE DC'D WITH CATH TIP INTACT, NO REDNESS OR SWELLING NOTED. HARD SCRIPTS FOR OXYCODONE AND CLONIPINE SENT WITH PT IN SNF DC PKT. REPORT CALLED TO RECEIVING RN AT [facility]
== END 2021-12-14 11:55 | DRG 637 ==
LOC: ER 15:41 → PCU 15:42 → EDBD 15:42 → PCU 15:42 → MEDS 12-01 14:47 → PCU 12-01 23:20 → MEDS 12-10 09:39
PROVIDERS: Emergency Medicine; Family Medicine; Internal Medicine; ADMIT Family Medicine
DX: E11.649 Type 2 diabetes mellitus with hypoglycemia without coma (principal); G92.8 Other toxic encephalopathy; M62.82 Rhabdomyolysis; N39.0 Urinary tract infection, site not specified; E11.40 Type 2 diabetes mellitus with diabetic neuropathy, unspecified; Z20.822 Contact with and (suspected) exposure to COVID-19; I10 Essential (primary) hypertension; E87.6 Hypokalemia; K74.60 Unspecified cirrhosis of liver; F12.90 Cannabis use, unspecified, uncomplicated; K59.03 Drug induced constipation; T40.605A Adverse effect of unspecified narcotics, initial encounter; F41.9 Anxiety disorder, unspecified; B96.20 Unspecified Escherichia coli [E. coli] as the cause of diseases classified elsewhere; G47.00 Insomnia, unspecified; Z91.14 Patient's other noncompliance with medication regimen
CPT/HCPCS: 0241U; 36415; 51701; 51702; 51703; 62270; 70450; 70551; 71045; 72125; 74177; 80048; 80053; 80069; 81001; 82140; 82533; 82550; 82553; 82607; 82746; 82945; 82947; 83036; 83525; 83527; 83690; 84145; 84206; 84443; 84681; 85025; 85027; 85651; 86140; 86225; 86235; 86317; 86430; 86592; 86704; 87077; 87086; 87186; 87483; 89051; 93005; 93010; 96361; 96365-59; 96366; 96375-59; 96376-59; 97110; 97116; 97162; 97166; 97530; 97535; 99291-25; A9270; C1751; C9113; G0378; G0480; J0696; J1610; J1650; J2060; J2405; J2930; J3010; J3480; J7040; J7042; J7070; J7131; Q9967